=== PATIENT | female | born 1945 | race Caucasian/White ===

== ENCOUNTER 2019-06-01 15:46 | Inpatient (IN) | payer MEDICARE ==
[2019-06-01] MEDS ORDERED: NS 0.9% 1000 ML** 1,000 ML IV ONE (15:50)
--- NOTE | 2019-06-01 15:57 | ED ---
Neurological HPI - HPI Summary HPI Summary: This pt is a 73 Y/O F presenting to [facility] with a CC of a sudden onset of tingling on her L side and confusion. Per EMS she was unable to correctly communicate with them and the pt was crying stating I dont know what to do over and over. She states that she is very confused and is unable to state the year and month correctly. She is currently a level 5 caveat due to her confusion and inability to state her present complications. However, per EMS she states that the tingling has resolved. Her friend informed EMS that the pt arrived to her room at 1530 and was in the present state. Her friend states that she was last seen well at 1200 but the time of the onset is unknown. - History of Current Complaint Chief Complaint: EDNeurologicalDeficit Stated Complaint: CONFUSION PER EMS Time Seen by Provider: 06/01/19 15:50 Last Known Well Date: 1200 Hx Obtained From: EMS Hx From Patient Unobtainable Due To: Other - Pt is a level 5 caveat due to her confusion and inability to state her present complications. Onset/Duration: Sudden Onset, Still Present - confusion, Resolved - tingling Timing: Constant Pain Intensity: 0 Associated Signs and Symptoms: Positive: Confusion, Numbness - tingling TPA Considered: No - Onset is unknown, unknown if pt is having a CVA - Allergy/Home Medications Allergies/Adverse Reactions: Allergies Allergy/AdvReac Type Severity Reaction Status Date / Time No Known Allergies Allergy Verified 06/01/19 16:14 Home Medications: Home Medications Lisinopril TAB* [Prinivil TAB*] 10 mg PO DAILY 06/01/19 [History Confirmed 06/01] Metoprolol Tartrate TAB* [Lopressor TAB*] 125 mg PO BID 06/01/19 [History Confirmed 06/01/19] PMH/Surg Hx/FS Hx/Imm Hx Previously Healthy: No Infectious Disease History: No Infectious Disease History: Denies: Traveled Outside the [place] in Last 30 Days - Additional Comments History Additional Comments: Pt is a level 5 caveat due to her confusion and inability to state her present complications. Review of Systems - ROS Summary Review of Systems Summary: Pt is a level 5 caveat due to her confusion and inability to state her present complications. Neurological: Other - confusion Positive: Numbness - tingling All Other Systems Reviewed And Are Negative: No Physical Exam - Summary Physical Exam Summary: VITAL SIGNS: Reviewed. GENERAL: Patient is a well-developed and nourished female who is lying comfortable in the stretcher. Patient is not in any acute respiratory distress. HEAD AND FACE: No signs of trauma. No ecchymosis, hematomas or skull depressions. No sinus tenderness. EYES: PERRLA, EOMI x 2, No injected conjunctiva, no nystagmus. EARS: Hearing grossly intact. Ear canals and tympanic membranes are within normal limits. MOUTH: Oropharynx within normal limits. NECK: Supple, trachea is midline, no adenopathy, no JVD, no carotid bruit, no c- spine tenderness, neck with full ROM. CHEST: Symmetric, no tenderness at palpation LUNGS: Clear to auscultation bilaterally. No wheezing or crackles. CVS: Regular rate and rhythm, S1 and S2 present, no murmurs or gallops appreciated. ABDOMEN: Soft, non-tender. No signs of distention. No rebound no guarding, and no masses palpated. Bowel sounds are normal. EXTREMITIES: FROM in all major joints, no edema, no cyanosis or clubbing. NEURO: Alert and not oriented. Slightly confused. No acute neurological deficits. Speech is normal and follows commands. SKIN: Dry and warm Triage Information Reviewed: Yes Vital Signs On Initial Exam: Initial Vitals Temp Pulse Resp BP Pulse Ox 98 F 73 15 126/109 97 06/01/19 15:47 06/01/19 15:47 06/01/19 15:47 06/01/19 15:47 06/01/19 15:47 Vital Signs Reviewed: Yes Completion Of Physical Exam Limited Due To: Level 5 - Pt is a level 5 caveat due to her confusion and inability to state her present complications. Procedures - Sedation Patient Received Moderate/Deep Sedation with Procedure: No Diagnostics - Vital Signs Vital Signs Temp Pulse Resp BP Pulse Ox 06/01/19 15:47 98 F 73 15 126/109 97 - Laboratory Result Diagrams: 06/01/19 16:23 06/01/19 16:23 Lab Statement: Any lab studies that have been ordered have been reviewed, and results considered in the medical decision making process. - Radiology CXR Radiology Interpretation Completed By: Radiologist Summary of Radiographic Findings: No evidence for acute intrathoracic disease. Potential obstructive lung disease given elevated lung volumes. ED physician has reviewed this report. - CT Brain CT CT Interpretation Completed By: Radiologist Summary of CT Findings: No acute intracranial process evident. Stigmata of probable chronic small vessel ischemic disease. Correlate for potential acute sphenoid sinusitis. ED physician has reviewed this report. - EKG 1616 Cardiac Rate: NL - 69 BPM EKG Rhythm: Sinus Bradycardia ST Segment: Normal Ectopy: None Summary of EKG Findings: An EKG at 1616 reveals NSR 86 BPM, nml axis, nml intervals. No STEMI. No acute changes. Interpreted by Dr. 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/Release Non-Paretic Hand: Both Correctly Best Gaze (Only Horizontal Eye Movement): Normal Visual Field Testing: No Visual Loss Facial Paresis-Pt to Smile & Close Eyes or Grimace Symmetry: Normal/Symmetrical Motor Function - Right Arm: No Drift-Holds 10 Seconds Motor Function - Left Arm: No Drift-Holds 10 Seconds Motor Function - Right Leg: No Drift-Holds 10 Seconds Motor Function - Left Leg: No Drift-Holds 10 Seconds Limb Ataxia-Must be out of Proportion to Weakness Present: Absent Sensory (Use Pinprick to Test Arms/Legs/Trunk/Face): Normal Best Language (Describe Picture, Name Items): No Aphasia Dysarthria (Read Several Words): Normal Extinction and Inattention: No Abnormality Total Score: 1 Course/Dx - Course Assessment/Plan: This pt is a 65 Y/O F presenting to [facility] with a 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 She states that [place] the [place] and landed on her coccyx and then hitting her head on the ground. She states that she is unsure if she lost consciousness and has a contusion to the occipital region of her head. When EMS picked her up her BS was a 54, she was given a D50 en route to [facility] and is currently at 120. She was found with an AMS. She denies any fevers, headaches, neck pain, chills, N/V, and SOB. She states that she has a PMHx of DM type 1 and was diagnosed 40 years ago. She states that she did not eat anything unusual throughout her day. Blood work without any significant abnormality except for sodium 123, chloride 90. Glucose 104 and total bili 1.5. Urinalysis is negative for UTI and urine toxicology is negative. Chest x-ray impression: No evidence for acute intrathoracic disease. Head CT impression: No acute intracranial process evident. I believe that the patients symptoms of confusion are secondary to the hyponatremia. I discussed my physical exam and findings with Dr. Mac from the hospital services was accepted the patient for admission. - Differential Dx Differential Diagnoses Neuro: Positive: Carbon Monoxide Poisoning, Cerebrovascular Accident, Transient Ischemic Attack, Vasovagal Reaction - Diagnoses Provider Diagnoses: Acute hyponatremia - Physician Notifications Discussed Care Of Patient With: Victor Hugo Mac Time Discussed With Above Provider: 17:15 Instructed by Provider To: Admit As Inpatient Admit/Transition Orders Completed By ED Provider: Yes Discharge ED - Sign-Out/Discharge Documenting (check all that apply): Patient Departure - admitted - Discharge Plan Condition: Stable Disposition: ADMITTED TO [facility] Referrals: No Primary Care Phys,NOPCP [Primary Care Provider] - - Billing Disposition and Condition Condition: STABLE Disposition: Admitted to [facility] - Attestation Statements Document Initiated by Scribe: Yes Documenting Scribe: Raghavendra Mathis Provider For Whom Scribe is Documenting (Include Credential): Gen Lopez MD Scribe Attestation: I, Raghavendra Mathis, scribed for Gen Lopez MD on 06/01/19 at 1817. Scribe Documentation Reviewed: Yes Provider Attestation: The documentation as recorded by the Raghavendra calvert accurately reflects the service I personally performed and the decisions made by me, Gen Lopez MD Status of Scribe Document: Viewed
[2019-06-01 16:15] LABS: Urine Appearance Cloudy; Urine Bilirubin Negative (Negative); Urine Blood Negative (Negative); Urine Color Yellow; Urine Glucose 2+(150 mg/dL) (Negative); Urine Ketones Trace (Negative); Urine Nitrite Negative (Negative); Urine Protein Negative (Negative); Urine Specific Gravity 1.014 (1.010-1.030); Urine Urobilinogen Negative (Negative)
[2019-06-01 16:31] LABS: ABS Eosinophils 0.1 10^3/ul (0-0.6); ABS Monocytes 0.5 10^3/ul (0-0.8); ABS Neutrophils 5.4 10^3/ul (1.5-7.7); Eosinophil % 0.8 %; Hematocrit 36 % (35-47); Hemoglobin 12.9 g/dL (12.0-16.0); Mean Corpuscular HGB Conc 36 g/dL (31-36); Mean Corpuscular Hemoglobin 29 pg (27-31); Mean Corpuscular Volume 81 fL (80-97); Mean Platelet Volume 7.5 fL (7.4-10.4); Platelet Count 230 10^3/uL (150-450); Red Blood Count 4.49 10^6 /uL (3.70-4.87); Red Cell Distribution Width 14 % (10-15); White Blood Count 6.9 10^3/uL (3.5-10.8)
[2019-06-01 16:38] LABS: INR 1.09 (0.82-1.09)
[2019-06-01 16:51] LABS: ALT 9 U/L (7-52); AST 18 U/L (13-39); Albumin 4.3 g/dL (3.2-5.2); Albumin/Globulin Ratio 1.8 (1-3); Alkaline Phosphatase 84 U/L (34-104); Anion Gap 8 mmol/L (2-11); BUN/Creatinine Ratio 13.2 (8-20); Blood Urea Nitrogen 9 mg/dL (6-24); CO2 Carbon Dioxide 25 mmol/L (22-32); Calcium 8.9 mg/dL (8.6-10.3); Chloride 90 mmol/L (101-111); Cholesterol 229 mg/dL; EGFR African American 102.9 (>60); EGFR Non-African American 85.1 (>60); Globulin 2.4 g/dL (2-4); Glucose 104 mg/dL (70-100); HDL Cholesterol 77.4 mg/dL; LDL Cholesterol 138 mg/dL; Potassium 3.9 mmol/L (3.5-5.0); Sodium 123 mmol/L (135-145); Total Protein 6.7 g/dL (6.4-8.9); Triglycerides 67 mg/dL
[2019-06-01 16:52] LABS: Alcohol < 10 mg/dL (<10)
[2019-06-01 16:53] LABS: Troponin I 0.01 ng/mL (<0.03)
[2019-06-01 17:06] LABS: TSH (Thyroid Stimulating Horm) 4.06 mcIU/mL (0.34-5.60)
[2019-06-01 17:51] LABS: Urine Benzodiazepine Screen None Detected (None Detect); Urine Opiates Screen None Detected (None Detect)
[2019-06-01 17:55] LABS: Urine Creatinine Concentration 86.61 mg/dL
[2019-06-01] MEDS ORDERED: Dextrose 50% VIAL 50 ml IV PUSH PRN (18:01)
[2019-06-01] MEDS ORDERED: NS 0.9% 1000 ML** 1,000 ML IV SCH (18:30)
--- NOTE | 2019-06-01 20:04 | HP ---
CC: Dr. Santos at [place] * ADMISSION HISTORY AND PHYSICAL: DATE OF ADMISSION: 06/01/19 CHIEF COMPLAINT: Tingling. HISTORY OF PRESENT ILLNESS: Ms. Reyes is a 73-year-old woman with history of hypertension who developed right hand tingling on her dominant side this afternoon. She also had lightheadedness and became very anxious about the tingling thinking that it might be a stroke. She went to a neighbor's house in her apartment building and notified them of the problem and they summoned an ambulance for her. She does not have any weakness or speech problem, vision issues or right foot issues. She denies any history of hyponatremia. She is a little unclear of her medications, but states that there has not been any medication changes recently. A nurse in the ER called her pharmacy and found that she is on metoprolol and lisinopril, but has not picked them up in the last 7 months. PAST MEDICAL HISTORY: Includes hypertension and type 2 diabetes. PAST SURGICAL HISTORY: Bariatric surgery 40 years ago. MEDICATIONS: On admission: 1. Lisinopril 20 mg p.o. daily. 2. Metoprolol 25 mg p.o. b.i.d. 3. A pill for diabetes. Family will bring medications from home tomorrow. ALLERGIES: None. FAMILY HISTORY: Somewhat unclear as she was adopted. She does know her biological father of a myocardial infarction. Her sister of unknown causes. Her brother of a cancer, unknown type. SOCIAL HISTORY: She is . She has 2 children. 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 She has never smoked, no alcohol or drug use. REVIEW OF SYSTEMS: The patient reports decreased appetite in the last 2 years and 20 pounds of weight loss over 2 years, nothing acute. Denies any fevers, cough, shortness of breath. She did have a sore throat 2 days ago, which has resolved. The patient denies any chest pain or palpitations. The patient denies any nausea, vomiting or diarrhea. Remainder of 14-point review of systems is negative other than mentioned in the HPI. PHYSICAL EXAMINATION GENERAL: She is a well-appearing older woman in no acute distress. VITAL SIGNS: Temperature is 36.6, pulse 67, respirations 23, blood pressure is 168/89, oxygen saturation is 98%. HEENT: Head is normocephalic, atraumatic. Sclerae anicteric. Pupils equal, round, reactive to light and accommodation. Oropharynx is moist without lesions. NECK: No JVD. No carotid bruits. No thyromegaly. LUNGS: Clear to auscultation and percussion bilaterally. No effusions or dullness to percussion. HEART: Regular rate and rhythm without gallops. There is a 1/6 systolic murmur best heard at the left upper sternal border. ABDOMEN: Soft, nontender. Positive bowel sounds. No hepatosplenomegaly. EXTREMITIES: No peripheral edema. Dorsalis pedis pulses are 2+ bilaterally. NEUROLOGIC: Cranial nerves II through XII are intact. Motor strength is 5/5 throughout. Sensation is intact in the upper and lower extremities. Deep tendon reflexes are 2+ and symmetric. She is alert and oriented x3. DIAGNOSTIC STUDIES/LAB DATA: Sodium 123, potassium 3.9, chloride 90, bicarb 25 , BUN 9, creatinine 0.68, glucose 104, calcium 8.9. Total protein 6.7, albumin 4.3, total bilirubin 1.5. Alcohol less than 10. Troponin 0.01. INR 1.09. TSH 4.06. Triglycerides 67, cholesterol 229. White count 6.9, hemoglobin 12.9, hematocrit 36%, platelets 230. Urinalysis shows trace ketones and 2+ glucose. EKG shows normal sinus rhythm, normal axis. No ischemic ST or T-wave changes. Chest x-ray shows possible elevated lung volumes. No infiltrates or effusions. Head CT is negative for infarct or bleed. ASSESSMENT AND PLAN: A 73-year-old man presenting with some dizziness and tingling and hyponatremia. There was an initial concern about stroke, but given that the tingling has resolved and that the symptoms are better explained by hyponatremia, I do not think she needs to have a full stroke workup. For the hyponatremia, she does not appear to have pseudohyponatremia, because her glucose, total protein, triglycerides, and alcohol levels are normal. Differential of the euvolemic hyponatremia would include SIADH, renal insufficiency, thyroid disease, other dietary problems. She may be a little dehydrated given her poor p.o. intake, so we will give her a liter of normal saline, which will provide her with some sodium in any case to begin to re- equilibrate. We will check her sodium levels every 4 hours overnight and titrate as needed. We will check the sodium and chloride in the urine to assess for SIADH and check the serum osmolality to make sure that she is hypoosmolar and hyponatremic. Differential would also include its lung mass or carcinoid. CT chest was ordered for tomorrow. She has a new heart murmur and will have echocardiogram. I do not think she has heart failure or volume overload causing hyponatremia. The patient reports diabetes. We will follow her fingerstick blood glucose and give her sliding scale insulin. Given that she has a normal blood sugar in the serum and an elevated sugar in the urine, she may be on SGLT2 inhibitor, which could be contributing in some way to her hyponatremia. In any case, we will hold that and give her a low dose of metoprolol given the uncertainty of the doses and hold lisinopril as this could have caused the hyponatremia also. Code status is full. DVT prophylaxis will be with subcu heparin. [id number]/[facility] #: [id number] [facility] HOSPITALRosaline
[2019-06-01 20:27] LABS: BUN/Creatinine Ratio 11.6 (8-20); EGFR African American 101.2 (>60); EGFR Non-African American 83.6 (>60); Potassium 3.6 mmol/L (3.5-5.0)
[2019-06-01] MEDS ORDERED: Metoprolol Tartrate TAB* 100 MG TAB PO SCH (21:00)
[2019-06-01] MEDS: Metoprolol Tartrate TAB* 25 MG PO SCH (21:54)
[2019-06-01] MEDS: Heparin VIAL(*) 5000 UNITS/ML VIAL (FIVE THOUSAND) SUBCUT SCH (21:55)
[2019-06-01] MEDS: Insulin LISPRO* 1 UNITS UNIT SUBCUT SCH (22:26)
[2019-06-02 00:37] LABS: BUN/Creatinine Ratio 11.4 (8-20); Calcium 8.7 mg/dL (8.6-10.3); EGFR African American 99.5 (>60); EGFR Non-African American 82.3 (>60); Potassium 3.6 mmol/L (3.5-5.0)
[2019-06-02 04:21] LABS: BUN/Creatinine Ratio 12.1 (8-20); Calcium 8.6 mg/dL (8.6-10.3); EGFR African American 123.6 (>60); EGFR Non-African American 102.2 (>60); Potassium 3.5 mmol/L (3.5-5.0)
[2019-06-02 04:59] LABS: Free T4 1.12 ng/dL (0.61-1.12)
[2019-06-02] MEDS: Heparin VIAL(*) 5000 UNITS/ML VIAL (FIVE THOUSAND) SUBCUT SCH ×3 (05:43→21:18)
[2019-06-02] MEDS: Insulin LISPRO* 1 UNITS UNIT SUBCUT SCH ×4 (08:19→21:10)
[2019-06-02] MEDS: Metoprolol Tartrate TAB* 25 MG PO SCH (09:27)
[2019-06-02] MEDS ORDERED: Iodixanol* (CONTRAST) 320 MG/ML 100 ML SDV IV ONE (10:25)
--- NOTE | 2019-06-02 12:54 | ECHO ---
*[facility]* [place] [address] Fax #: [phone] Transthoracic Echocardiogram Patient: Jessenia Reyes : 1945 Study Date: 06/02/2019 Age: 73 Gender: F HR: 60 bpm Height: 67 in /170.2 cm BSA: 1.71 m^2 Weight: 134.7 lb /61.2 kg BMI: 21.1 kg/m^2 *Financial Aid: Mia Jeffrey *Referring Physician: * Victor Hugo MacReading Physician: * Vick Buckley MD Indications: Murmur. History: Risk factors: Hypertension. Diabetes mellitus. Conclusions Summary: - Left ventricle: Systolic function is normal. The estimated ejection fraction is 55-60%. Wall motion is normal; there are no regional wall motion abnormalities. - Mitral valve: There is trace regurgitation. - Aortic valve: The valve is probably trileaflet. The leaflets are mildly calcified. There is no evidence of stenosis. - Tricuspid valve: There is trace regurgitation. - Pulmonary arteries: Systolic pressure is within the normal range, estimated to be 25 mm Hg. - Study data: No prior study is available for comparison. Study data: Transthoracic echocardiogram. Procedure: Transthoracic echocardiography was performed. Image quality was good. Complete 2D, spectral Doppler, and color flow Doppler. Location: Bedside. Patient status: Inpatient. Patient room number: 444-2. No prior study is available for comparison. Rhythm: Normal sinus rhythm. Findings Left ventricle: The cavity size is normal. Wall thickness is normal. Systolic function is normal. The estimated ejection fraction is 55-60%. Wall motion is normal; there are no regional wall motion abnormalities. Left ventricular diastolic function parameters are normal. Right ventricle: The cavity size is normal. Systolic function is normal. Left atrium: The atrium is normal in size. Right atrium: The atrium is normal in size. Atrial septum: No defect or patent foramen ovale is identified. Mitral valve: Appears calcified. The leaflets are normal thickness. There is no evidence of stenosis. There is trace regurgitation. Aortic valve: The valve is probably trileaflet. The leaflets are mildly calcified. There is no evidence of stenosis. There is no significant regurgitation. Tricuspid valve: The valve is structurally normal. There is no evidence of stenosis. There is trace regurgitation. Pulmonic valve: The valve is structurally normal. There is no evidence of stenosis. There is trace regurgitation. Aorta: The aortic root appears normal. The aortic arch appears normal. Pericardium: There is no significant pericardial effusion. Pulmonary arteries: Systolic pressure is within the normal range, estimated to be 25 mm Hg. Pulmonary veins: Not well visualized. Measurements Left ventricle Value Ref Aortic valve Value Ref ANGEL, LAX 3.9 cm 3.8 - Germaine diam, ED 1.6 cm ----- 5.2 Peak v, S 1.63 m/sec ----- ESD, LAX (L) 1.9 cm 2.2 - VTI, S 37.2 cm ----- 3.5 Mean grad, S 7.0 mm Hg ----- FS, LAX (H) 52 % 27 - 45 Peak grad, S 11.0 mm Hg ----- PW, ED, LAX 0.8 cm 0.6 - CURT, VTI 1.51 cm^2 ----- 0.9 CURT, Vmax 1.26 cm^2 ----- FS (H) 52 % 27 - 45 Mid-wall FS 20 % -------- Mitral valve Value Ref PW, ED 0.8 cm 0.6 - Peak E 0.87 m/sec ----- 0.9 Peak A 1.29 m/sec ----- PW/ID, ED 0.2 -------- Decel time 222 ms ----- E', lat germaine, TDI (L) 6.7 cm/sec >=10.0 Peak grad, D 3.0 mm Hg ----- E/e', lat germaine, TDI 13 -------- Peak E/A ratio 0.7 --- -- E', med germaine, TDI (L) 6.1 cm/sec >=7.0 E/e', med germaine, TDI 14 -------- Pulmonic valve Value Ref E', avg, TDI 6.4 cm/sec -------- Peak v, S 0.71 m/sec --- -- E/e', avg, TDI 14 <=14 Peak grad, S 2.0 mm Hg ----- LVOT Value Ref Tricuspid valve Value Ref Diam, S 1.60 cm -------- TR peak v 2.27 m/sec <=2.8 Area 2.0 cm^2 -------- Peak RV-RA grad, S 21 mm Hg ----- Peak allyson, S 1.02 m/sec -------- Max TR allyson 2.39 m/sec ----- Mean grad, S 3 mm Hg -------- SV 54 ml -------- Aortic root Value Ref Root diam 3.1 cm <3.9 Ventricular septum Value Ref IVS, ED (H) 1.0 cm 0.6 - Ascending aorta Value Ref 0.9 AAo AP diam, S 2.9 cm ----- Right ventricle Value Ref Aortic arch Value Ref ANGEL, LAX 3.4 cm -------- Arch diam 1.7 cm ----- ANGEL minor ax, A4C 3.3 cm 1.9 - mid 3.5 Decending aorta Value Ref Roland peak allyson 0.68 m/sec ----- Left atrium Value Ref ML dim, A4C 2.7 cm -------- Inferior vena cava Value Ref SI dim, A4C 4.5 cm -------- Diam 1.5 cm ----- Vol/bsa, ES, 1-p 11 ml/m^2 11 - 40 A4C Vol/bsa, ES, A/L 20 ml/m^2 16 - 34 Right atrium Value Ref SI dim, ES 4.4 cm 3.4 - 5.3 ML dim, ES, A4C 3.9 cm 2.6 - 4.4 SI dim, ES, A4C 4.4 cm 3.4 - 5.3 Legend: (L) and (H) carlos eduardo values outside specified reference range. Prepared and electronically signed by Vick Buckley MD 06/02/2019 12:53
[2019-06-02 16:14] LABS: HDL Cholesterol 68.3 mg/dL
[2019-06-02] MEDS ORDERED: Iodixanol 320 (CONTRAST) 100 ML SDV IV ONE (16:14)
[2019-06-02] MEDS ORDERED: Cyanocobalamin INJ * 1,000 MCG/ML VIAL 1 ML VIAL IM ONE (16:43)
--- NOTE | 2019-06-02 17:17 | PN ---
Subjective Date of Service: 06/02/19 Interval History: Patient reports that she is felling well. Denies hand numbness or tingling. Denies lightheadedness or dizziness. Denies chest pain or shortness of breath. Patient reports that she would like to go home. No event reported overnight 1431- patient was given testing results, reports that she is feeling well, verbalized understanding of current changes in medications, will prepare discharge. 1509- Called by nursing- patient with slurred speech and left sided facial droop, left arm weakness- patient seen at the bedside, patient with left facial lip droop, slurred speech, confusion, left arm with weakness/ drift, slight weakness to left leg - Code Woodson called- Blood sugar 111. Last known well was 1431. patient to CT. Dr. Yoder from neurology at the bedside. Patient will be transferred to the ICU for further management. 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 CTA head and neck, CT brain. Will need echo with bubble study. Family History: Unchanged from Admission Social History: Unchanged from Admission Past Medical History: Unchanged from Admission Objective Active Medications: Aspirin (Aspirin Ec Tab*) 81 mg PO DAILY [facility] Atorvastatin Calcium (Lipitor*) 40 mg PO 2100 [facility] Clopidogrel Bisulfate (Plavix Tab*) 75 mg PO DAILY [facility] Cyanocobalamin (Vitamin B12 Tab*) 500 mcg PO DAILY [facility] Dextrose (Dextrose 50% Vial 50 Ml*) 25 ml IV PUSH .FOR FS < 60 - SS PRN PRN Reason: FS < 60 Heparin Sodium (Porcine) (Heparin Vial(*)) 5,000 units SUBCUT Q8HR [facility] Last Admin: 06/02/19 13:16 Dose: Not Given Insulin Human Lispro (Humalog*) 0 units SUBCUT ACHS [facility]; Protocol Last Admin: 06/02/19 17:00 Dose: Not Given Metoprolol Tartrate (Lopressor Tab*) 25 mg PO DAILY [facility] Multivitamins/Minerals (Theragran/Minerals Tab*) 1 tab PO DAILY [facility] Vital Signs - 8 hr 06/02/19 06/02/19 06/02/19 11:15 15:16 16:12 Temperature 97.9 F 98.8 F 98.9 F Pulse Rate 71 75 79 Respiratory 18 16 Rate Blood Pressure 119/69 101/65 156/105 (mmHg) O2 Sat by Pulse 98 98 98 Oximetry Oxygen Devices in Use Now: None Appearance: alert oriented x3 , no acute distress Eyes: No Scleral Icterus Ears/Nose/Mouth/Throat: Clear Oropharnyx, Mucous Membranes Moist Neck: NL Appearance and Movements; NL JVP, Trachea Midline Respiratory: Symmetrical Chest Expansion and Respiratory Effort, Clear to Auscultation Cardiovascular: NL Sounds; No Murmurs; No JVD, No Edema Abdominal: NL Sounds; No Tenderness; No Distention Extremities: No Edema, No Clubbing, Cyanosis Skin: No Rash or Ulcers Neurological: Alert and Oriented x 3 Nutrition: Taking PO's Result Diagrams: 06/03/19 04:14 06/03/19 04:14 Microbiology and Other Data: Microbiology 06/01/19 16:01 Aerobic Blood Culture - Preliminary Blood Venous No Growth Day 1 Anaerobic Blood Culture - Preliminary No Growth Day 1 Assess/Plan/Problems-Billing Assessment: Ms. Reyes is a 73 y.o female with presented to the Emergency with right hand numbness and tingling and concern for stroke. Symptoms completed resolved. Patient was found to have hyponatremia with a sodium 123. Patient does have a hx of gastric bypass 40 years ago. - Patient Problems (1) Hyponatremia Current Visit: Yes Status: Acute Code(s): E87.1 - HYPO-OSMOLALITY AND HYPONATREMIA SNOMED Code(s): 73445128 Comment: Sodium has improved today to 129 - will stop IVF - no signs of SIADH - CT of the chest is negative for mass or lesion - hyponatremia is likely caused by poor appeite and lisinopril (2) HTN (hypertension) Current Visit: Yes Status: Acute Code(s): I10 - ESSENTIAL (PRIMARY) HYPERTENSION SNOMED Code(s): 51810005 Comment: Blood pressure are soft sbp 106-115 - Will continue to hold lisinopril as this is likely contributing to her hyponatremia - will decrease metoprolol to 25 mg daily and change to succ (3) Hand numbness Current Visit: Yes Status: Acute Code(s): R20.0 - ANESTHESIA OF SKIN SNOMED Code(s): 326827569 Comment: resolved (4) DVT prophylaxis Current Visit: Yes Status: Acute Code(s): Z29.9 - ENCOUNTER FOR PROPHYLACTIC MEASURES, UNSPECIFIED SNOMED Code(s): 003884662 Comment: heparin (5) Full code status Current Visit: Yes Status: Acute Code(s): Z78.9 - OTHER SPECIFIED HEALTH STATUS SNOMED Code(s): 223488253 Status and Disposition: inpatient - transferred to the ICU after code Woodson.
--- NOTE | 2019-06-02 17:25 | CONS ---
CONSULTATION REPORT: DATE OF CONSULT: 06/02/19 PATIENT OF: Rebecca Tsai NP and Marimar Gordon NP HISTORY OF PRESENT ILLNESS: This is a 73-year-old right-handed woman who was recently hospitalized on 06/01/19 for hyponatremia and transient right hand numbness and tingling without any weakness. The hyponatremia was being corrected and she was being discharged this afternoon when she had new onset of focal neurological symptoms. She was seen by Marimar Gordon NP, last at 2: 31 and was found to be alert, oriented without any focal deficits. Shortly after 3 o'clock, she was found to be having difficulty writing, being confused and having some left-sided weakness according to her nurse. There was a left facial droop at that time. I came to her room and a code malcolm was called. She was being wheeled out of her room to CT scan and she had in the hallway a left pronator drift that was clear- cut. When she was down in CT scan, her symptoms had completely resolved. PAST MEDICAL HISTORY: She has had a history of hypertension, diabetes type 2, and she has been hyponatremic. PAST SURGICAL HISTORY: She has had bariatric surgery 40 years ago. MEDICATIONS ON ADMISSION: Include: 1. Lisinopril 20 mg daily. 2. Metoprolol 25 mg b.i.d. 3. An oral diabetic agent. In the hospital, she has been on metoprolol. ALLERGIES: She has no allergies. FAMILY HISTORY: She is adopted, but the biological father did of a myocardial infarction. 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 She does not smoke, drink, or use drugs. REVIEW OF SYSTEMS: Negative in all 14 spheres other than that in HPI. PHYSICAL EXAM: Temperature 98.8; pulse 75; respirations ; blood pressure when I initially saw her was 101/65, currently it is 156/105. She had NIH Stroke Scale of 0 and I did that along with Rebecca Tsai NP, and this was documented in the chart. Chest: Clear. Cardiovascular: Regular rate and rhythm. Abdomen is soft with positive bowel sounds. She was alert and oriented with normal speech and comprehension. Cranial nerves II through XII were intact. Motor exam revealed normal tone, strength, coordination. Finger-to- nose negative for drift. Sensation intact to light touch and there was no extinction or neglect. Toes were downgoing. DIAGNOSTIC STUDIES/LAB DATA: Her CT scan was negative. Her CTA was negative. Labs include a CBC that was normal yesterday. INR 1.09. LDL 126. B12 of 133. Her sodium earlier today was 129. Normal BUN and creatinine. Her UA was negative other than positive glucose. Her blood glucose most recently was 111. Toxicology was negative on admission. IMPRESSION AND PLAN: Jessenia had some left-sided focal symptoms that quickly resolved this afternoon. It is possible that this was a transient ischemic attack and she is being observed closely since she is still within a tPA window if things got worse. She has no large vessel disease, so she would not be a clot retrieval candidate even if she worsened. She should be on aspirin and Plavix for now, will be treated with a statin. Her low B12 should be treated. She should have an MRI scan to evaluate to see if she has had evidence of stroke on MRI scan and she should have an echo with bubble study. She did have right hand numbness when she came in and this could well be just something peripheral like a carpal tunnel syndrome, but in the setting of left-sided focal deficit quickly resolved, it raises the possibility of whether the right hand numbness was also ischemic and would raise the issue of cardioembolic disease. Depending on the results of her further studies, we may want to monitor her for atrial fibrillation for a longer period of time than just this hospitalization. Thank you for sharing her case. [id number]/[facility] #: [id number] MARTHA
[2019-06-02] MEDS: Aspirin EC TAB* 81 MG TAB.EC PO SCH (18:05)
--- NOTE | 2019-06-02 18:33 | PN ---
Progress Note - Progress Note Date of Service: 06/02/19 Note: CAT call this afternoon which was upgraded to CODE FLETCHER for left side facial droop, unclear speech, and listing to the left while patient was being readied for discharge. She was trying to write her name and was re-writing her first name only and became acutely confused. Team and Dr. Yoder and Hospitalist at bedside for evaluation. Last known well time is 1431. CT head, CTA head and neck negative for acute CVA or acute large vessel occlusion. NIHSS = 0 at 15:50, no indication for tPA Discussion with Dr. Yoder regarding findings, patient originally admitted for hyponatremia and paresthesia of right hand which have resolved. At this time, patient will have Q1h neuro checks, DAPT, swallow eval, lipids and HgBAIC, limited ECHO with bubble study and MRI no contrast. Patient will be kept in ICU until out of the window for tPA in case symptoms present again and patient needs urgent intervention. May be downgraded back to tele thereafter. Recheck labs in AM, B12 supplementation ordered, level is 133 and may be contributing. Continue for follow sodium levels. 17:30 Patient passed bedside swallow, diet ordered, VS stable, no changes on tele, neuro checks with no deviations. Discussed with Marimar Morrison, MACK, primary Hospitalist.
[2019-06-02] MEDS ORDERED: hydrALAZINE IV* 20 MG/ML VIAL IV SLOW PU PRN (20:53)
[2019-06-02] MEDS: Atorvastatin* 40 MG TAB PO SCH (21:25)
[2019-06-02] MEDS ORDERED: Labetalol IV* 5 MG/ML 20 ML VIAL IV PUSH PRN (23:48)
[2019-06-03 04:40] LABS: Hematocrit 33 % (35-47); Hemoglobin 11.8 g/dL (12.0-16.0); Mean Corpuscular HGB Conc 36 g/dL (31-36); Mean Corpuscular Hemoglobin 29 pg (27-31); Mean Corpuscular Volume 81 fL (80-97); Mean Platelet Volume 7.8 fL (7.4-10.4); Platelet Count 163 10^3/uL (150-450); Red Blood Count 4.04 10^6 /uL (3.70-4.87); Red Cell Distribution Width 14 % (10-15); White Blood Count 5.6 10^3/uL (3.5-10.8)
[2019-06-03 04:53] LABS: ABS Eosinophils 0.1 10^3/ul (0-0.6); ABS Lymphocytes 1.2 10^3/ul (1.0-4.8); ABS Monocytes 0.4 10^3/ul (0-0.8); ABS Neutrophils 3.9 10^3/ul (1.5-7.7); Eosinophil % 0.9 %; Lymphocyte % 21.5 %; Nucleated Red Blood Cells % 0.1
[2019-06-03 04:56] LABS: Calcium 8.9 mg/dL (8.6-10.3); Potassium 3.4 mmol/L (3.5-5.0)
[2019-06-03 05:02] LABS: BUN/Creatinine Ratio 12.7 (8-20); EGFR African American 131.5 (>60); EGFR Non-African American 108.6 (>60)
[2019-06-03] MEDS ORDERED: Potassium Chloride* LIQUID 20 MEQ/15 ML UDC PO ONE (06:14)
[2019-06-03] MEDS: Heparin VIAL(*) 5000 UNITS/ML VIAL (FIVE THOUSAND) SUBCUT SCH ×3 (06:33→23:53)
[2019-06-03] MEDS: Insulin LISPRO* 1 UNITS UNIT SUBCUT SCH ×4 (07:40→20:21)
[2019-06-03] MEDS: Metoprolol Succinate XL TAB* 25 MG PO SCH (08:59)
[2019-06-03] MEDS: Aspirin EC TAB* 81 MG TAB.EC PO SCH (09:00)
[2019-06-03] MEDS ORDERED: Lisinopril TAB* 10 MG PO SCH (09:00)
[2019-06-03] MEDS: Clopidogrel TAB* 75 MG PO SCH (09:00)
[2019-06-03] MEDS ORDERED: Metoprolol Tartrate TAB* 25 MG PO SCH (09:00)
[2019-06-03] MEDS: Cyanocobalamin TAB* 500 MCG PO SCH (09:01)
[2019-06-03] MEDS: Multivitamins/Minerals TAB PO SCH (09:02)
[2019-06-03] MEDS ORDERED: Potassium Chlor TAB* 20 MEQ TAB.ER PO ONE (09:14)
--- NOTE | 2019-06-03 10:29 | ECHO ---
*[facility]* [place] [address] Fax #: [phone] Limited Transthoracic Echocardiogram Patient: Jessenia Reyes : 1945 Study Date: 06/03/2019 Age: 73 Gender: F HR: 73 bpm Height: 66.9 in /170 cm BSA: 1.78 m^2 Weight: 147.1 lb /66.9 kg BMI: 23.1 kg/m^2 *Inseam Trimming Machine Operator: * Radha Marmolejo [facility] *Referring Physician: * Rebecca Tsai *Reading Physician: * Vick Buckley MD Indications: TIA. History: Risk factors: Hypertension. Diabetes mellitus. Conclusions Summary: Atrial septum: The atrial septum appears aneurysmal. A PFO is not demonstrated by agitated saline contrast. Study data: Transthoracic echocardiogram, limited study. Procedure: Transthoracic echocardiography was performed. Image quality was fair. A bubble study was performed. Location: ICU Patient status: Inpatient. Patient room number: ICU-02. Rhythm: Normal sinus rhythm. Findings Atrial septum: The atrial septum appears aneurysmal. A PFO is not demonstrated by agitated saline contrast. Bubble study images 1, 2, and 4. Prepared and electronically signed by Vick Buckley MD 06/03/2019 10:29
--- NOTE | 2019-06-03 16:28 | PN ---
Subjective Date of Service: 06/03/19 Interval History: Patient seen and evaluated in the ICU. Patient is confused to situation and place at times. Patient is alert and oriented to person and time at this time. Speech is clear. Denies lightheadedness or dizziness. Denies chest pain or shortness of breath. Denies abd pain, n/v/d. Denies fever or chills. Contacted PCP office - last visit was 08/2018- Last prescription was sent in july of 2018- for lisinopril 10 mg daily and metoprolol 25 mg BID. Contact [facility] pharmacy contacted reports that last prescription were filled and picked up 10/2018. Daughter was updated, expressed concern of patient level of confusion. Daughter is traveling from [place] and will be here in the AM to mushroom picker the patient and take her home. Vital signs reviewed from overnight -patient was hypertensive SBP 160-170's given Hydralazine and Labatolol - will resume home medications. Spoke nursing staff - patient with periods of situational confusion overnight. Family History: Unchanged from Admission Social History: Unchanged from Admission Past Medical History: Unchanged from Admission Objective Active Medications: Aspirin (Aspirin Ec Tab*) 81 mg PO DAILY [facility] Last Admin: 06/03/19 09:00 Dose: 81 mg Atorvastatin Calcium (Lipitor*) 40 mg PO 2100 [facility] Last Admin: 06/02/19 21:25 Dose: 40 mg Clopidogrel Bisulfate (Plavix Tab*) 75 mg PO DAILY [facility] Last Admin: 06/03/19 09:00 Dose: 75 mg Cyanocobalamin (Vitamin B12 Tab*) 500 mcg PO DAILY [facility] Last Admin: 06/03/19 09:01 Dose: 500 mcg Dextrose (Dextrose 50% Vial 50 Ml*) 25 ml IV PUSH .FOR FS < 60 - SS PRN PRN Reason: FS < 60 Heparin Sodium (Porcine) (Heparin Vial(*)) 5,000 units SUBCUT Q8HR [facility] Last Admin: 06/03/19 06:33 Dose: Not Given Hydralazine HCl (Apresoline Iv*) 5 mg IV SLOW PU Q6H PRN PRN Reason: SYSTOLIC BP GREATER THAN: Last Admin: 06/02/19 21:18 Dose: 5 mg Insulin Human Lispro (Humalog*) 0 units SUBCUT [facility]; Protocol Last Admin: 06/03/19 11:56 Dose: Not Given Labetalol HCl (Trandate Iv*) 20 mg IV PUSH Q6H PRN PRN Reason: BLOOD PRESSURE Last Admin: 06/03/19 00:12 Dose: 4 ml Lisinopril (Prinivil Tab*) 10 mg PO DAILY [facility] Last Admin: 06/03/19 09:01 Dose: 10 mg Metoprolol Succinate (Toprol Xl Tab*) 25 mg PO DAILY [facility] Last Admin: 06/03/19 08:59 Dose: 25 mg Multivitamins/Minerals (Theragran/Minerals Tab*) 1 tab PO DAILY [facility] Last Admin: 06/03/19 09:02 Dose: 1 tab Vital Signs - 8 hr 06/03/19 06/03/19 06/03/19 08:00 08:02 08:30 Temperature Pulse Rate 77 67 76 Respiratory 19 16 17 Rate Blood Pressure 161/68 172/81 (mmHg) O2 Sat by Pulse 98 98 97 Oximetry 06/03/19 11:27 Temperature 97.9 F Pulse Rate Respiratory Rate Blood Pressure (mmHg) O2 Sat by Pulse Oximetry Oxygen Devices in Use Now: None Appearance: alert, no acute distress, speech is clear Eyes: No Scleral Icterus Ears/Nose/Mouth/Throat: Clear Oropharnyx, Mucous Membranes Moist Neck: NL Appearance and Movements; NL JVP, Trachea Midline Respiratory: Symmetrical Chest Expansion and Respiratory Effort, Clear to Auscultation Cardiovascular: NL Sounds; No Murmurs; No JVD, No Edema Abdominal: NL Sounds; No Tenderness; No Distention Skin: No Rash or Ulcers Neurological: Alert and Oriented x 3 Nutrition: Taking PO's Result Diagrams: 06/03/19 04:14 06/03/19 04:14 Microbiology and Other Data: Microbiology 06/01/19 16:01 Aerobic Blood Culture - Preliminary Blood Venous No Growth Day 1 Anaerobic Blood Culture - Preliminary No Growth Day 1 Assess/Plan/Problems-Billing Assessment: Ms. Reyes is a 73 y.o female with presented to the Emergency with right hand numbness and tingling and concern for stroke. Symptoms completed resolved. Patient was found to have hyponatremia with a sodium 123. Patient does have a hx of gastric bypass 40 years ago. - Patient Problems (1) TIA (transient ischemic attack) Current Visit: Yes Status: Acute Code(s): G45.9 - TRANSIENT CEREBRAL ISCHEMIC ATTACK, UNSPECIFIED SNOMED Code(s): 877499925 Comment: Patient with episode of left lip droop, left arm and leg weakness, slurred speech and confusion - resolved prior to transfer to the ICU - Neurology consulted - monitored in the ICU overnight - SBP - elevated -MRI - negative for acute stroke CTA- negative for large vessel occulsion - will continue aspirin and plavix as well - will continue atorvastatin 40 mg daily - NEurocheck wnl limits (2) Hyponatremia Current Visit: Yes Status: Acute Code(s): E87.1 - HYPO-OSMOLALITY AND HYPONATREMIA SNOMED Code(s): 14521865 Comment: Sodium has improved today to 136 - no signs of SIADH - CT of the chest is negative for mass or lesion - hyponatremia is likely caused by poor appeite and lisinopril (3) HTN (hypertension) Current Visit: Yes Status: Acute Code(s): I10 - ESSENTIAL (PRIMARY) HYPERTENSION SNOMED Code(s): 85998790 Comment: Blood pressure are soft sbp 135-174 - Conitnue metoprolol 25 mg daily - will add lisinopril (4) Hand numbness Current Visit: Yes Status: Acute Code(s): R20.0 - ANESTHESIA OF SKIN SNOMED Code(s): 320470871 Comment: resolved (5) DVT prophylaxis Current Visit: Yes Status: Acute Code(s): Z29.9 - ENCOUNTER FOR PROPHYLACTIC MEASURES, UNSPECIFIED SNOMED Code(s): 922321410 Comment: heparin (6) Full code status Current Visit: Yes Status: Acute Code(s): Z78.9 - OTHER SPECIFIED HEALTH STATUS SNOMED Code(s): 416245080 Status and Disposition: inpatient - transferred to the ICU after code [place]son.
[2019-06-03] MEDS: Atorvastatin* 40 MG TAB PO SCH (20:21)
[2019-06-04] MEDS: Heparin VIAL(*) 5000 UNITS/ML VIAL (FIVE THOUSAND) SUBCUT SCH ×2 (05:01→13:09)
[2019-06-04] MEDS: Insulin LISPRO* 1 UNITS UNIT SUBCUT SCH ×2 (08:28→11:39)
[2019-06-04] MEDS: Aspirin EC TAB* 81 MG TAB.EC PO SCH (08:52)
[2019-06-04] MEDS: Multivitamins/Minerals TAB PO SCH (08:52)
[2019-06-04] MEDS: Cyanocobalamin TAB* 500 MCG PO SCH (08:52)
[2019-06-04] MEDS: Clopidogrel TAB* 75 MG PO SCH (08:52)
[2019-06-04] MEDS: Metoprolol Succinate XL TAB* 25 MG PO SCH (08:52)
[2019-06-04] MEDS ORDERED: amLODIPine TAB* 5 MG PO SCH (09:00)
[2019-06-04 15:46] VITALS: BP 127/77
--- NOTE | 2019-06-04 21:43 | DS ---
CC: Dr. Yoder * DISCHARGE SUMMARY: DATE OF ADMISSION: 06/01/19 DATE OF DISCHARGE: 06/04/19 PROVIDER: Marimar Gordon NP. PRIMARY CARE PROVIDER: Dr. Mark Santos. ATTENDING PHYSICIAN WHILE IN THE HOSPITAL: Dr. Inés Beaulieu * (dictated by Marimar Gordon NP). PRIMARY DIAGNOSES: 1. Transient ischemic attack. 2. Hypertension. 3. Hyponatremia. SECONDARY DIAGNOSIS: Type 2 diabetes. STUDIES COMPLETED WHILE IN THE HOSPITAL: She had a CT of the brain on 06/01/19 , which showed no acute intracranial process evident, stigmata of probable chronic small vessel ischemic disease, correlate for potential acute sphenoid sinusitis. She had a chest x-ray, no evidence of acute intrathoracic disease, potential obstructive lung disease given elevated lung volumes. She had an electrocardiogram on 06/02/19, which showed sinus rhythm at a rate of 77, no changes. She had a CT of the chest on 06/02/19, no evidence for acute findings of lung mass, cholelithiasis. She had a CTA of the head and neck on 06/02/19, no evidence of acute intracranial mass or hemorrhage, chronic ischemic white matter change. CTA of the head and neck is grossly unremarkable. Evaluation of portions of the carotid artery are limited due to motion artifact, suboptimal study. No distal dissection is noted. She had an MRI of the brain on 06/02/19, no acute intracranial abnormality. She had a transthoracic echocardiogram on 06/01/19, which showed an estimated ejection fraction of 55% to 60%, normal wall motion. There was no regional wall motion abnormalities. Mitral valve with trace regurgitation, aortic valve with probable trileaflet, pulmonary systolic pressure was within normal range, systolic function was normal. She had a bubble study done on 06/02/19 that showed no evidence of patent foramen ovale. DISCHARGE MEDICATIONS: New home medications: 1. Metoprolol succinate 25 mg p.o. daily. 2. Norvasc 5 mg p.o. daily. 3. Aspirin 81 mg p.o. daily. 4. Plavix 75 mg p.o. daily. 5. Atorvastatin 40 mg p.o. daily. 6. Vitamin B12 500 mcg p.o. daily. 7. Multivitamin 1 tablet p.o. daily. Continued home medications: 1. Melatonin 3 mg at bedtime. HISTORY OF PRESENT ILLNESS AND HOSPITAL COURSE: Ms. Reyes is a 73-year-old female with past medical history significant for hypertension, gastric bypass, who presented to the emergency room with complaints of right hand tingling, lightheadedness, and became very anxious thinking that she was having a stroke. She went to her neighbor's apartment building and notified them. They summoned the ambulance and brought her to the hospital. The patient was monitored overnight. On the next morning, the patient was being readied for discharge when she had a sudden onset of left-sided facial droop, left arm weakness, left leg weakness, slurred speech. A code malcolm was called and she was taken for stat CT of the head and CTA of the head to rule out CVA. The patient was seen in consultation by Neurology, Dr. Yoder who thought this was likely related a TIA. Her symptoms resolved quickly and she returned to baseline with no residual deficits. The patient was monitored overnight on Telemetry. There was no arrhythmias noted. Her neuro checks remained within normal limits. She had no acute finding on CT or MRI, and at this time, she is stable for discharge home. Throughout her hospitalization, she initially had episodes of low blood pressure and then elevations in her blood pressure. Blood pressure medicines were resumed with the exception of lisinopril was not resumed due to the concerns that this is causing her hyponatremia, but it is also unclear if the patient is currently taking any of her medications as she has not had any prescriptions filled since October 2018. During the patient's stay in the ICU, she did develop some mild hospital delirium. She does have some confusion to situation and time that is evident. I spoke to the daughter about her periods of confusion, and the daughter verbalized understanding and has noted similar traits prior to admission. During this hospitalization, the patient was also found to be hyponatremic with a sodium level of 123, I suspect this is related to poor nutrition and the use of lisinopril. Her lisinopril was stopped. The patient was given IV fluids with resolution of her hyponatremia. At this time, the patient is stable for discharge home. REVIEW OF SYSTEMS: The patient denies any fever, chills, chest pain, shortness of breath. Denies any lightheadedness, dizziness, visual changes. Denies any hand weakness, tingling, numbness on one side. She denies any slurred speech, difficulty swallowing. PHYSICAL EXAMINATION: General: At this time, Ms. Reyes is alert. She is oriented to place and time. She is a little confused to situation. Vital Signs : Blood pressure 141/65, heart rate 71, respirations 16, O2 saturation 97%, temperature is 98.1. HEENT: Head is atraumatic, normocephalic. Eyes: EOMs are intact. Sclerae anicteric and not pale. Oral mucosa is moist. Neck is supple. Lungs are clear to auscultation bilaterally. No wheezes, rales, or rhonchi. Cardiac: S1, S2. Regular rate and rhythm. No murmurs, rubs, or gallops. Abdomen is soft and nontender. Bowel sounds are present x4. Extremities: She is able to move all 4 extremities. There is no clubbing or cyanosis. Neurologic: The patient is alert. Her speech is clear. Tongue is midline. There is no facial asymmetry. Smile is equal. There is no pronator drift. Hand messaging architect are equal. Sensation is intact to all 4 extremities. There is no pronator drift. There is no leg drift. Push pull is intact. Skin is intact. DISCHARGE PLAN: The patient will be discharged home with her daughter. 1. Transient ischemic attack. The patient will be placed on atorvastatin, aspirin 81 mg, and clopidogrel 75 mg p.o. daily x1 month and then we will continue on aspirin 81 mg p.o. daily. She should follow up with Neurology in 4 to 6 weeks. She should call the office for an appointment. The patient would likely benefit from an event monitor outpatient to assess for cardiac arrhythmias such as atrial fibrillation as the cause of her TIA. 2. Hypertension. The patient did have some hypertension during this hospitalization. Her blood pressure medications were resumed. We will continue her on metoprolol succinate 25 mg p.o. daily. I have added amlodipine 5 mg p.o. daily. She may need further adjustments to her blood pressure medications as outpatient. I have discontinued her lisinopril as the patient was significantly hyponatremic on admission to the hospital with sodium of 123. 3. Type 2 diabetes. The patient's blood sugar was well controlled during this hospitalization. Her blood sugars ranged from 77 to 148. Her hemoglobin A1c was 5.8. At this time, the patient is not requiring any oral medications for management of her type 2 diabetes. 4. Hyponatremia. The patient was hyponatremic on admission. She did have sodium of 123. She did receive IV hydration throughout her hospitalization. During the beginning of her hospitalization, her sodium did improve to 136. At this time, we have stopped her lisinopril as this could be a likely cause of her hyponatremia as well as poor p.o. intake. I would recommend that the patient resume a regular diet. 5. Hyperlipidemia. The patient did have an LDL of 126. Due to the recent TIA , it was recommended statin therapy. She will continue on atorvastatin 40 mg p.o. daily. 6. The patient should follow up with her primary care provider on 06/09/19 at 3 p.m. as previously scheduled. She should call Dr. Yoder's office to schedule a followup appointment in regards to her TIA in 4 to 6 weeks. CONDITION ON DISCHARGE: Stable. DISPOSITION ON DISCHARGE: Home. TIME SPENT: Time spent on this discharge is 45 minutes, greater than half that time was spent at bedside reviewing discharge instructions and plans. I have discussed this with my attending Dr. Inés Beaulieu; she is in agreement with my plan. MARIMAR GORDON, MACK [id number]/[facility] #: [id number] MARTHA
== END 2019-06-04 16:50 | disposition home or self-care (01) | DRG 69 ==
LOC: ED 15:46 → MEDTELE 17:28 → INTOOBSV 17:28 → MEDTELE 22:30 → ICU 06-02 15:55 → OBSVTOIN 06-03 06:55 → MEDTELE 06-04 08:32
PROVIDERS: ADMIT Internal Medicine; ATTEND Internal Medicine
DX: G45.9 Transient cerebral ischemic attack, unspecified (principal); E87.1 Hypo-osmolality and hyponatremia; F05 Delirium due to known physiological condition; I10 Essential (primary) hypertension; E11.9 Type 2 diabetes mellitus without complications; R01.1 Cardiac murmur, unspecified; E78.5 Hyperlipidemia, unspecified; I08.0 Rheumatic disorders of both mitral and aortic valves; Z79.82 Long term (current) use of aspirin; Z98.84 Bariatric surgery status; Z28.21 Immunization not carried out because of patient refusal; Z79.02 Long term (current) use of antithrombotics/antiplatelets; Z79.899 Other long term (current) drug therapy
CPT/HCPCS: 36415; 70450; 70496; 70498; 70551; 71046; 71260; 80048; 80053; 80061; 80307; 80320; 81003; 82436; 82533; 82570; 82607; 83036; 83605; 83880; 83930; 84300; 84439; 84443; 84479; 84484; 85025; 85610; 86850; 86900; 86901; 87040; 87641; 93005; 93306; 93308; 99284; A9270-GY; G0480; J0360; J1644; J3420; Q9967